=== PATIENT | female | born 1950 | race Caucasian/White ===

== ENCOUNTER 2016-06-16 08:03 | Day surgery (SDC) | payer MEDICARE, OTHER ==
[~2016-06-16] VITALS: Ht 160 cm; Wt 106.1 kg
[~2016-06-16 08:03] MED LIST: CYCL5TAB PO; CeFAZolin Inj 2 GM in IV Premix 1 EACH IV SCH; EPHEDrine Sulfate 50 mg/mL Inj IVPUSH PRN; EPIN0.3P2 IJ; HYDROmorphone 1 mg/mL Inj IVPUSH PRN; LISI10TA PO; Labetalol 5 mg/mL 4 mL Inj IV PRN; Lactated Ringer's 1,000 ML IV SCH; Lactated Ringer's 500 ML IV PRN; METF500T4 PO; MetoCLOpramide 5 mg/mL 2 mL Inj IVPUSH PRN; NITR100C PO; OMEP20CA11 PO; Ondansetron 2 mg/mL 2 mL Inj IVPUSH PRN; Phenylephrine 10,000 mCg/mL Inj IVPUSH PRN; SIMV20TA PO; TAMO20TA4 PO; ZLP10T PO; fentaNYL-PF 50 mCg/mL 2 mL Inj IVPUSH PRN
[2016-06-16] MEDS ORDERED: Ketamine 10 mg/mL 20 mL Inj ONE (08:04)
[2016-06-16] MEDS ORDERED: Propofol 10,000 mCg/mL 20 mL Inj ONE (08:04)
[2016-06-16 08:44] VITALS: BP 138/66; PULSE 59; RESP 16; O2SAT 97
[2016-06-16] MEDS ORDERED: Lactated Ringer's 1,000 ML IV ONE (10:30)
--- NOTE | 2016-06-16 10:30 | PCM.HPANE ---
Patient Data Date of Service: Jun 16, 2016 Surgeon Admitting Provider: Attending Provider:Marsha Camacho MD Primary Care Physician:Skip Hickey MD Other Provider:Leann Cox Anesthesia Reason for Visit Urge Incontinence, Urgency Of Urination Ht/WT & BMI Height (Feet): 5 Height (Inches): 3 Weight (Kilograms): 106.141 Body Mass Index 0.00 Allergies Coded Allergies: NSAIDS (Non-Steroidal Anti-Inflamma (Verified Allergy, Severe, Hives, 11/15) Penicillins (Verified Allergy, Severe, Hives, 11/15/13) aspirin (Verified Allergy, Severe, Anaphylaxis, 11/15/13) beclomethasone (Verified Allergy, Severe, leg problems, 11/15/13) ciprofloxacin (Verified Allergy, Severe, Hives, 11/15/13) latex (Verified Allergy, Severe, hives, 12/04/13) anastrozole (Verified Allergy, Unknown, 12/15/15) fluticasone (Verified Allergy, Unknown, 10/12/13) red dye (Verified Allergy, Unknown, 10/12/13) salmeterol (Verified Allergy, Unknown, 10/12/13) Past Anesthesia History Anesthesia History: Denies:: Abnormal Airway, Anesthesia Reactions, Difficult Intubation, Fam Anesthesia Reaction, Fam Malignant Hypertherm, Malignant Hyperthermia Diabetes History Hx Diabetes?: Yes Type of Diabetes: Type II Glycemic Control: Oral Medication Current Bedside Blood Glucose: 104 MRSA MRSA: No Medications Hypertension Medication: Yes Home Meds Incl Beta Ken: No Reported Medications Nitrofurantoin Macrocrystal 100 Mg [id number] Mg PO DAILY #30 06/11/16 Omeprazole 20 Mg Capsule.dr20 Mg PO BID Ref 0 12/15/15 Metformin 500 Mg Tablet1,000 Mg PO BIDAC Ref 0 12/15/15 Lisinopril 10 Mg Ytzjnv92 Mg PO DAILY 30 Days Ref 0 12/15/15 Cyclobenzaprine 5 Mg Tablet5 Mg PO HS PRN Spasm Ref 0 12/15/15 Zolpidem (Ambien)10 Mg Yrhvdq72 Mg PO HS PRN For Insomnia Ref 0 06/17/15 Tamoxifen Citrate 20 Mg Xhlecv78 Mg PO DAILY 11/20/14 Epinephrine (Epipen 2-Greg)0.3 Mg/0.3 Ml Auto.injct0.3 Mg IJ PRN PRN For Anaphyllaxis 11/15/13 Simvastatin (Zocor)20 Mg Icyafj63 Mg PO HS Ref 0 10/12/13 Discontinued Reported Medications Oxybutynin Chloride ER 5 Mg Tab.er.245 Mg PO DAILY Ref 0 12/15/15 History History of ENT Problems?: Yes HEENT History: Positive for:: Cataracts Dysphagia (TYPE 3 Achalasia) Denies:: Abnormal Airway Difficult Intubation Hearing Problem Sinus Problem Hx of Heart Problems?: Yes Cardiovascular History: Positive for:: Hypertension (HYPERLIPIDEMIA) Denies:: Atrial Fibrillation Chest Pain Congestive Heart Failure Heart Murmur Irregular Heartbeat Pacemaker Rheumatic Fever Thrombophlebitis Hx of Respiratory Problem?: Yes Respiratory History: Positive for:: Use of C-PAP Machine Denies:: Asthma (STATES NO LONGER HAS) COPD Dyspnea Emphysema Hemoptysis Tuberculosis Hx Neurologic Problems?: No Neurological History: Denies:: Alzheimer's Disease CVA Dementia Dizziness Headaches Multiple Sclerosis Parkinson's Disease Seizures TIA Hx of GI Problems?: Yes Gastrointestinal History: Positive for:: Gastroesphageal Reflux Heartburn Denies:: Cirrhosis Diverticulitis Hepatitis Liver Disease Rectal Bleeding Hx of Problems?: Yes Genitourinary History: Positive for:: Urinary Tract Infection Denies:: HX of Hemodialysis Kidney Stones Female Hx: Positive for:: Problems with Breasts? (Breast cancer) Denies:: Currently (Post menopausal-age 42) Endometriosis Pelvic Inflammatory Skin History: Denies:: History Skin Disorders? Pressure Ulcers Hx Musculoskeletal Problems?: Yes Musculoskeletal History: Positive for:: Osteoarthritis Denies:: Back Injury Joint Replacement Musculoskeletal Trauma Hx of Psycho/Social Problems?: No Psycho Social History: Denies:: Anxiety Bipolar Disorder Hx Depression Hx Surgeries?: Yes (Bladder suspension X3, breast ca removal AND RECONSTRUCTION , hysterectomy) Hx Any Other Health Problems?: Yes Other History: Positive for:: Cancer (new breast ca 2013) Endocrine Disease Hospitalization (Hysterectomy/bladder suspension) Denies:: Thyroid Disease History Blood Transfusions: Positive for:: Accept Blood Products? Denies:: Blood Transfusions Hx Diabetes: YesBedside Blood Glucose: 104 Hx Alcohol Use: Yes (NOT OFTEN)Hx Substance Use: No Smoking Status: Never Smoker Have You Smoked inLast 12 mo: No Stop/Bang S-Snoring: Do You Snore Loudly: Yes T-Tired: feel tired, fatigued: Yes O-Obsered: Observed not breath: Yes P-Blood Pressure: treated: Yes B- Body Mass Index > 35 kg/m2: Yes A- Age over 50: Yes N- Neck Large Circumference: Yes G- Gender Male: No AMERICA Total Score: 7 AMERICA Risk Assessment: High Risk, =/>3 Yes AMERICA Category 2: Yes Risk Assessment Category Category 1A: Patient has history of documented sleep apnea, and HAS NOT received any narcotic, sedative or anesthesia administration during this stay. Category 1B: Patient has history of documented sleep apnea, and HAS received any narcotic , sedative or anesthesia administration during this stay Category 2: Patient has SUSPECTED Obstructive Sleep Apnea, and HAS received any narcotic , sedative or anesthesia administration during this stay. Category 3: Patient has SUSPECTED Obstructive Sleep Apnea and HAS NOT received narcotic, sedative or anesthesia administration during this stay. Category 4: Outpatient in Procedural Areas with known sleep apnea or who screen positive for High Risk via the STOP/BANG questionnaire. Exam Exam Vital Signs Vital Signs Date Time Temp Pulse Resp B/P Pulse Ox O2 Delivery O2 Flow Rate FiO2 06/16/16 08:44 36.0 59 16 138/66 97 Room Air General Appearance: Alert, Oriented X3, Cooperative, No Acute Distress HEENT/AIRWAY: MP 2 Lungs: Clear to Auscultation, Normal Air Movement Heart: Exam Unremarkable, Regular Rate/Rhythm, No Murmurs/Rubs/Gallops Meds/Labs/Diagnostics Bedside Blood Glucose: 104 Plan Impression Patient chart reviewed, patient interviewed and anesthestic plan with risks, benefits, and alternatives discussed, and informed consent obtained. NPO Status: 0600 sips with meds ASA Physical Status: ASA2 Mod Systemic Disease Anesthetic Plan: MAC Bene/Risks/Altern/Consents: Yes HP Complete Prior to Induction: Yes Daniele Mahmood MD Jun 16, 2016 10:30
[2016-06-16] MEDS ORDERED: Vancomycin 1,000 mg Inj IRRIGATION ONE (10:49)
[2016-06-16] MEDS ORDERED: Bupivacaine-MPF 0.5% W/EPI 30 mL Inj INFILTRATE ONE (10:49)
[2016-06-16] MEDS ORDERED: Gentamicin 40 mg/mL 2 mL Inj IRRIGATION ONE (10:50)
[2016-06-16 11:47] VITALS: BP 129/66; PULSE 73; RESP 16; O2SAT 97
[2016-06-16] MEDS ORDERED: HYDROcodone-APAP 5-325 mg Tablet PO PRN (11:50)
[2016-06-16] MEDS ORDERED: Ondansetron 8 mg ODT Tablet PO PRN (11:50)
[2016-06-16 12:00] VITALS: BP 121/70; PULSE 66; RESP 12; O2SAT 98
--- NOTE | 2016-06-16 12:06 | PCM.ANEP2 ---
Post Anesthesia Evaluation ASA/CMS Post Anesthesia VS in Patient's Normal Range?: Yes Resp Stable; Airway Patent?: Yes CV Function & Hydration Stable: Yes Mental Status Recovered?: Yes Pain control Satisfactory?: Yes N/V Control Satisfactory?: Yes Daniele Mahmood MD Jun 16, 2016 12:06
--- NOTE | 2016-06-17 23:35 | OP ---
[address] [address] OPERATIVE REPORT PATIENT: KATHY TORRES : 1950 MR#: [id number] ADMIT: 06/16/2016 JOB ID: [id number] DATE OF SURGERY: 06/16/2016 PROCEDURE: Stage 1 InterStim implant to include transforaminal placement of the sacral neural electrode at S3 with fluoroscopic imaging and guidance. SURGEON: Marsha Camacho MD. ANESTHESIA: Local with monitored anesthesia care, IV sedation and pain medications. PREOPERATIVE DIAGNOSIS(ES): Intractable urinary urgency, frequency, urge incontinence. POSTOPERATIVE DIAGNOSIS(ES): Intractable urinary urgency, frequency, urge incontinence. INDICATIONS: The patient is a 65-year-old woman very troubled by her longstanding history of urinary urgency, frequency, fecal urgency, and incontinence electing trial of InterStim therapy for her problems. PROCEDURE IN DETAIL: After appropriate informed consent was obtained, the patient was brought to the operating room. She received IV antibiotics prior to onset of the procedure. She was made comfortable in the prone position. All pressure points carefully padded. Cleaned, prepped, and draped in the usual sterile fashion. Fluoroscope was brought in. Bony landmarks were identified. We identified the medial margins of the sacral foramina. We used a half/half mixture of lidocaine and Marcaine with epinephrine for local anesthesia. We used a finder needle to traverse ultimately the right-sided S3 foramen. Testing revealed good responses of elroy and toes to indicate an S3 response. This was converted in Seldinger fashion into a quadripolar electrode with good position identified by fluoroscopy. Testing of all four electrodes revealed good responses at low thresholds of toe and elroy. We removed the access sheath, allowed the tines to deploy and then locking the lead in place, we then created a pocket overlying the right-sided pelvis and buttock area. This was done sharply, bluntly with electrocautery. The distal end of the lead itself was tunneled over to the pocket. The pocket itself was irrigated out with antibiotic solution. We made a connection to the extension wire which was then tunneled out to the contralateral side to provide maximum distance between the prominent portion of the lead and the temporary lead extension. The wounds themselves were irrigated out copiously with antibiotic solution and then closed with a layer of 2-0 Vicryl, layer of 4-0 Monocryl, and benzoin and Steri-Strips. The patient tolerated the procedure very well. We took two images to show the position of the lead, PA and lateral, at the end. The patient tolerated the procedure very well and was returned to the one-day surgery area prior to discharge to home.
[2016-06-21] MEDS ORDERED: SULF1TAB35 PO (15:21)
[2016-06-24] MEDS ORDERED: NITR100 PO (14:59)
== END 2016-06-16 23:59 | disposition home or self-care (01) ==
LOC: SAS 08:03
PROVIDERS: ATTEND Urology
DX: N39.41 Urge incontinence (principal); R39.15 Urgency of urination; E11.9 Type 2 diabetes mellitus without complications; I10 Essential (primary) hypertension; R13.10 Dysphagia, unspecified; K21.9 Gastro-esophageal reflux disease without esophagitis; R11.2 Nausea with vomiting, unspecified; M19.90 Unspecified osteoarthritis, unspecified site; Z85.3 Personal history of malignant neoplasm of breast; Z79.899 Other long term (current) drug therapy

== ENCOUNTER 2016-06-25 07:12 | Day surgery (SDC) | payer MEDICARE, OTHER ==
[~2016-06-25] VITALS: Ht 160 cm; Wt 105.2 kg
[~2016-06-25 07:12] MED LIST changes: +CeFAZolin Inj 2 GM in IV Premix 1 EACH IV ONE; -CeFAZolin Inj 2 GM in IV Premix 1 EACH IV SCH; -EPHEDrine Sulfate 50 mg/mL Inj IVPUSH PRN; -HYDROmorphone 1 mg/mL Inj IVPUSH PRN; -Labetalol 5 mg/mL 4 mL Inj IV PRN; +Lactated Ringer's 1,000 ML IV ONE; -Lactated Ringer's 1,000 ML IV SCH; -Lactated Ringer's 500 ML IV PRN; -MetoCLOpramide 5 mg/mL 2 mL Inj IVPUSH PRN; +NITR100 PO; -NITR100C PO; -Ondansetron 2 mg/mL 2 mL Inj IVPUSH PRN; -Phenylephrine 10,000 mCg/mL Inj IVPUSH PRN; -fentaNYL-PF 50 mCg/mL 2 mL Inj IVPUSH PRN
[2016-06-25] MEDS ORDERED: fentaNYL-PF 50 mCg/mL 2 mL Inj ONE (07:13)
[2016-06-25] MEDS ORDERED: Ondansetron 2 mg/mL 2 mL Inj ONE (07:13)
[2016-06-25] MEDS ORDERED: Propofol 10,000 mCg/mL 20 mL Inj ONE (07:13)
[2016-06-25 08:29] VITALS: BP 124/71; PULSE 76; RESP 16; O2SAT 97
[2016-06-25] MEDS ORDERED: Lactated Ringer's 1,000 ML IV SCH (09:29)
[2016-06-25] MEDS ORDERED: Lactated Ringer's 500 ML IV PRN (09:29)
--- NOTE | 2016-06-25 09:29 | PCM.HPANE ---
Patient Data Surgeon Admitting Provider: Attending Provider:Marsha Camacho MD Primary Care Physician:Skip Hickey MD Other Provider:Antoinette Coxingham Anesthesia Reason for Visit Urge Incontinence, Urgency Of Urination Ht/WT & BMI Height (Feet): 5 Height (Inches): 3.00 Weight (Kilograms): 105.2 Body Mass Index 41.00 Allergies Coded Allergies: NSAIDS (Non-Steroidal Anti-Inflamma (Verified Allergy, Severe, Hives, 06/24) Penicillins (Verified Allergy, Severe, Hives (HAS HAD CEFAZOLIN W/O PROBLEMS), 06/24/16) aspirin (Verified Allergy, Severe, Anaphylaxis, 06/24/16) beclomethasone (Verified Allergy, Severe, leg problems, 06/24/16) ciprofloxacin (Verified Allergy, Severe, Hives, 06/24/16) latex (Verified Allergy, Severe, hives, 06/24/16) anastrozole (Verified Allergy, Unknown, UNKNOWN, 06/24/16) fluticasone (Verified Allergy, Unknown, 06/24/16) red dye (Verified Allergy, Unknown, UNKNOWN, 06/24/16) salmeterol (Verified Allergy, Unknown, 06/24/16) Past Anesthesia History Anesthesia History: Denies:: Abnormal Airway, Anesthesia Reactions, Difficult Intubation, Fam Anesthesia Reaction, Fam Malignant Hypertherm, Malignant Hyperthermia Diabetes History Hx Diabetes?: Yes Type of Diabetes: Type II Glycemic Control: Oral Medication Current Bedside Blood Glucose: 101 MRSA MRSA: No Medications Hypertension Medication: Yes (LISINOPRIL) Home Meds Incl Beta Ken: No Reported Medications Nitrofurantoin Monohyd/M-Cryst (MacroBid)100 Mg Seblncq947 Mg PO HS Ref 0 06/24/16 Omeprazole 20 Mg Capsule.dr20 Mg PO DAILY Ref 0 12/15/15 Metformin 500 Mg Tablet1,000 Mg PO BIDAC Ref 0 12/15/15 Lisinopril 10 Mg Pzidlj51 Mg PO DAILY 30 Days Ref 0 12/15/15 Cyclobenzaprine 5 Mg Tablet5 Mg PO HS PRN Spasm Ref 0 12/15/15 Zolpidem (Ambien)10 Mg Cxwwvw01 Mg PO HS PRN For Insomnia Ref 0 06/17/15 Tamoxifen Citrate 20 Mg Zxovxi96 Mg PO DAILY 11/20/14 Epinephrine (Epipen 2-Greg)0.3 Mg/0.3 Ml Auto.injct0.3 Mg IJ PRN PRN For Anaphyllaxis 11/15/13 Simvastatin (Zocor)20 Mg Usbmbl74 Mg PO HS Ref 0 10/12/13 Discontinued Reported Medications Sulfamethoxazole/Trimeth 800-160 mg (Bactrim DS 800-160 mg)1 Each Tablet1 Tablet PO BID Ref 0 06/21/16 Nitrofurantoin Macrocrystal 100 Mg Ilyylkf836 Mg PO DAILY #30 06/11/16 History History of ENT Problems?: Yes HEENT History: Positive for:: Cataracts Dysphagia (TYPE 3 Achalasia) Denies:: Abnormal Airway Difficult Intubation Hearing Problem Sinus Problem Denture Type: None Teeth Condition: Within Normal Limits Hx of Heart Problems?: Yes Cardiovascular History: Positive for:: Hypertension (HYPERLIPIDEMIA) Denies:: Atrial Fibrillation Chest Pain Congestive Heart Failure Heart Murmur Irregular Heartbeat Pacemaker Rheumatic Fever Thrombophlebitis Hx of Respiratory Problem?: Yes Respiratory History: Positive for:: Use of C-PAP Machine ([place]+ W/ CPAP SLEEP STUDY 12/2011) Denies:: Asthma (STATES NO LONGER HAS) COPD Dyspnea Emphysema Hemoptysis Tuberculosis Hx Neurologic Problems?: No Neurological History: Denies:: Alzheimer's Disease CVA Dementia Dizziness Headaches Multiple Sclerosis Parkinson's Disease Seizures Hx of GI Problems?: Yes Other GI Pertinent History: Achalasia Hx of Problems?: Yes Genitourinary History: Positive for:: Urinary Tract Infection Denies:: HX of Hemodialysis Kidney Stones Other Pertinent History: S/P BLADDER SUSPENSIONS X3,STAGE I INTERSTIM THERAPY Female Hx: Positive for:: Problems with Breasts? (S/P LT BREAST BX,MASTECTOMY W/ RECONSTRUCTIOIN FOR CA) Denies:: Currently Endometriosis Pelvic Inflammatory Skin History: Denies:: History Skin Disorders? Pressure Ulcers Hx Musculoskeletal Problems?: Yes Musculoskeletal History: Positive for:: Osteoarthritis Denies:: Back Injury Joint Replacement Musculoskeletal Trauma Hx of Psycho/Social Problems?: No Psycho Social History: Denies:: Anxiety Bipolar Disorder Hx Depression Hx Surgeries?: Yes (Bladder suspension X3, breast ca removal AND RECONSTRUCTION , hysterectomy,S) Hx Any Other Health Problems?: Yes Other History: Positive for:: Cancer (LT BREAST ) Endocrine Disease Denies:: Hospitalization Thyroid Disease History Blood Transfusions: Denies:: Blood Transfusions Hx Diabetes: YesBedside Blood Glucose: 101 Hx Alcohol Use: Yes (NOT OFTEN)Hx Substance Use: No Smoking Status: Never Smoker Have You Smoked inLast 12 mo: No Stop/Bang S-Snoring: Do You Snore Loudly: Yes T-Tired: feel tired, fatigued: Yes O-Obsered: Observed not breath: Yes P-Blood Pressure: treated: Yes B- Body Mass Index > 35 kg/m2: Yes A- Age over 50: Yes N- Neck Large Circumference: Yes G- Gender Male: No AMERICA Total Score: 7 Risk Assessment Category Category 1A: Patient has history of documented sleep apnea, and HAS NOT received any narcotic, sedative or anesthesia administration during this stay. Category 1B: Patient has history of documented sleep apnea, and HAS received any narcotic , sedative or anesthesia administration during this stay Category 2: Patient has SUSPECTED Obstructive Sleep Apnea, and HAS received any narcotic , sedative or anesthesia administration during this stay. Category 3: Patient has SUSPECTED Obstructive Sleep Apnea and HAS NOT received narcotic, sedative or anesthesia administration during this stay. Category 4: Outpatient in Procedural Areas with known sleep apnea or who screen positive for High Risk via the STOP/BANG questionnaire. Exam Exam Vital Signs Vital Signs Date Time Temp Pulse Resp B/P Pulse Ox O2 Delivery O2 Flow Rate FiO2 06/25/16 08:29 36.3 76 16 124/71 97 General Appearance: Alert, Oriented X3, Cooperative, No Acute Distress HEENT/AIRWAY: MP 2 Lungs: Clear to Auscultation, Normal Air Movement Heart: Exam Unremarkable, Regular Rate/Rhythm, No Murmurs/Rubs/Gallops Meds/Labs/Diagnostics Admission Meds Current Medications Lactated Ringer's (Lr) 1,000 ml @ 120 mls/hr [id number] ONCE IV Last administered on 06/25/16t 05:32; Start 06/25/16 at 01:01; Stop 06/25/16 at 09:20 Bedside Blood Glucose: 101 Plan Impression Patient chart reviewed, patient interviewed and anesthestic plan with risks, benefits, and alternatives discussed, and informed consent obtained. NPO per Anesth. Guidelines: Yes ASA Physical Status: ASA3 Severe Disease Anesthetic Plan: GA, MAC Bene/Risks/Altern/Consents: Yes HP Complete Prior to Induction: Yes Jefe Mirza MD Jun 25, 2016 08:55
[2016-06-25] MEDS ORDERED: MetoCLOpramide 5 mg/mL 2 mL Inj IVPUSH PRN (09:30)
[2016-06-25] MEDS ORDERED: Ondansetron 2 mg/mL 2 mL Inj IVPUSH PRN (09:30)
[2016-06-25] MEDS ORDERED: Labetalol 5 mg/mL 4 mL Inj IV PRN (09:30)
[2016-06-25] MEDS ORDERED: Phenylephrine 10,000 mCg/mL Inj IVPUSH PRN (09:30)
[2016-06-25] MEDS ORDERED: Atropine 0.4 mg/mL Inj IVPUSH PRN (09:30)
[2016-06-25] MEDS ORDERED: fentaNYL-PF 50 mCg/mL 2 mL Inj IVPUSH PRN (09:30)
[2016-06-25] MEDS ORDERED: Gentamicin 40 mg/mL 2 mL Inj IRRIGATION ONE (09:34)
[2016-06-25] MEDS ORDERED: Bupivacaine-MPF 0.5% W/EPI 30 mL Inj INJ ONE (09:34)
[2016-06-25] MEDS ORDERED: Vancomycin 1,000 mg Inj IRRIGATION ONE (09:34)
[2016-06-25 10:08] VITALS: BP 111/58; PULSE 70; RESP 16; O2SAT 95
[2016-06-25] MEDS ORDERED: Ondansetron 8 mg ODT Tablet PO PRN (10:15)
[2016-06-25] MEDS ORDERED: HYDROcodone-APAP 5-325 mg Tablet PO PRN (10:15)
[2016-06-25 10:18] VITALS: BP 115/53; PULSE 94; RESP 16; O2SAT 94
--- NOTE | 2016-06-25 10:23 | PCM.ANEP1 ---
Post Anesthesia Phase 1 PACU Phase 1 Assessment Vital Signs Vital Signs Date Time Temp Pulse Resp B/P Pulse Ox O2 Delivery O2 Flow Rate FiO2 06/25/16 10:18 94 16 115/53 94 Room Air 06/25/16 10:08 36.9 70 16 111/58 95 Room Air 06/25/16 08:29 36.3 76 16 124/71 97 Anesthetic Administered: MAC Level of Alertness: Awake, talking SALAZAR's with Equal Strength: Yes Pain: No Nausea or Vomiting: No Cardiovascular Function and Hy: Yes Oxygen Delivery: Room Air Lungs: Clear to Auscultation, Normal Air Movement Dermatome Level: Full Sensation Complications: No Patient Instructions Provided: Yes Jefe Mirza MD Jun 25, 2016 10:23
[2016-06-25 10:30] VITALS: BP 102/51; PULSE 70; RESP 14; O2SAT 94
--- NOTE | 2016-06-26 10:49 | OP ---
[address] [address] OPERATIVE REPORT PATIENT: KATHY TORRES : 1950 MR#: [id number] ADMIT: 06/25/2016 JOB ID: [id number] DATE OF SURGERY: 06/25/2016 PROCEDURE NAME: Stage 2 InterStim implant to include IPG implantation as well as complex initial programming and setup of the device. SURGEON: Marsha Camacho M.D. ANESTHESIA: Local monitored anesthesia care and IV sedation. PREOPERATIVE DIAGNOSIS(ES): Intractable urinary urgency, frequency, urge incontinence. POSTOPERATIVE DIAGNOSIS(ES): Intractable urinary urgency, frequency, urge incontinence. INDICATIONS: The patient is a 65-year-old woman with a longstanding history of treatment refractory urinary urgency, frequency, urge incontinence, who elected a trial of InterStim therapy. She had her lead placed on June 16, 2016 and had outstanding results. Her leak episodes went from 18+ per day to one small dribble pad usage to one just in case from multiple. Stated she had a better than 90% improvement, electing implantation of the device itself. PROCEDURE IN DETAIL: After appropriate informed consent was obtained, the patient was brought to the operating room. She received IV antibiotics prior to the onset of the procedure. She was made comfortable in the prone position. All pressure points carefully padded. Cleaned, prepped, and draped in the usual sterile fashion. The right-sided buttock wound was identified. It was opened up sharply and bluntly with electrocautery and we used lidocaine, Marcaine half/half mixture as an anesthesia. We identified the extension wire. This was and handed off. We freed up the end of the distal quadripolar electrode which looked good. The wound itself was increased in size to accommodate the size of the Medtronic 2 IPG. This was done sharply and bluntly with electrocautery. Electrocautery was used for hemostasis. We then made our connections to the Medtronic 2 IPG. Gentle tug revealed a good connection. It was irrigated out further with antibiotic solution of vancomycin and gentamicin and then closed in layers with 2-0 Vicryl suture, 4-0 Monocryl and then Dermabond. The patient tolerated the procedure well. She returned back to the one-day surgery area where we turned the device on. It was found to be operating within normal parameters with the set up initially with a rate of 14, pulse width of 210. Program 1 was set up as 0 negative and 3 positive. Program 2 was 1 negative and 3 positive. Program 3 was 2 negative and 0 positive. Program 4 was 3 negative and 0 positive.
== END 2016-06-25 23:59 | disposition home or self-care (01) ==
LOC: SAS 07:12
PROVIDERS: ATTEND Urology
DX: N39.41 Urge incontinence (principal); R39.15 Urgency of urination; I10 Essential (primary) hypertension; E11.9 Type 2 diabetes mellitus without complications; J45.909 Unspecified asthma, uncomplicated; K21.9 Gastro-esophageal reflux disease without esophagitis; E66.01 Morbid (severe) obesity due to excess calories; G47.33 Obstructive sleep apnea (adult) (pediatric); G25.81 Restless legs syndrome; Z68.41 Body mass index [BMI] 40.0-44.9, adult; Z79.84 Long term (current) use of oral hypoglycemic drugs; Z85.3 Personal history of malignant neoplasm of breast; Z87.440 Personal history of urinary (tract) infections
CPT/HCPCS: 64590; C1767; J0690; J1580; J2250; J2405; J3010; J3370; J7120